=== PATIENT | male | born 1990 | race Caucasian/White ===

== ENCOUNTER 2019-07-07 22:16 | Inpatient (IN) | payer MEDICAID, OTHER ==
[~2019-07-07] VITALS: Ht 172.7 cm; Wt 81.7 kg
[2019-07-07] MEDS ORDERED: LURA20TA PO (22:59)
[2019-07-07 23:11] LABS: BASOPHILS % (AUTO) 0.3 % (0.0-2.0); EOSINOPHILS % (AUTO) 0.1 % (1.0-6.0); HEMATOCRIT 42.7 % (41-53); HEMOGLOBIN 14.2 g/dL (13.5-17.5); LYMPHOCYTES # (AUTO) 2.7 K/uL (1.0-4.8); LYMPHOCYTES % (AUTO) 15.6 % (22.0-44.0); MEAN CORPUSCULAR HEMOGLOBIN 29.5 pg (26.0-34.0); MEAN CORPUSCULAR HGB CONC 33.3 G/dL (31.0-37.0); MEAN CORPUSCULAR VOLUME 89 fL (80-100); MONOCYTES % (AUTO) 5.8 % (2.0-9.0); NEUTROPHILS # (AUTO) 13.6 K/uL (1.8-7.7); NEUTROPHILS % (AUTO) 78.2 % (40.0-70.0); PLATELET COUNT (AUTO) 296 K/uL (150-450); RED BLOOD CELL COUNT(AUTO) 4.82 MIL/uL (4.50-5.90); RED CELL DISTRIBUTION WIDTH 12.5 % (11.5-14.5)
[2019-07-07 23:19] LABS: ANION GAP 17 mmol/L (8-16); CALCIUM, TOTAL 9.8 mg/dL (8.8-10.5); CARBON DIOXIDE 22 mmol/L (22-29); CHLORIDE 98 mmol/L (98-107); CREATININE 1.06 mg/dL (0.60-1.30); GLOMERULAR FILTR. RATE CALC > 60 mL/min (>60); GLUCOSE,RANDOM 73 mg/dL (70-110); POTASSIUM 4.1 mmol/L (3.5-5.1); SODIUM SERUM 137 mmol/L (136-145); UREA NITROGEN, BLOOD 20 mg/dL (7-18)
[2019-07-07 23:36] LABS: ALANINE AMINOTRANSFERASE 57 U/L (12-78); ALBUMIN 4.6 g/dL (3.4-5.0); ALKALINE PHOSPHATASE 62 U/L (46-116); ASPARTATE AMINOTRANSFERASE 83 U/L (15-37); BILIRUBIN,TOTAL 1.6 mg/dL (0.1-1.0); TOTAL PROTEIN, SERUM 7.9 g/dL (6.4-8.2)
[2019-07-07] MEDS ORDERED: ZOLPIDEM TARTRATE 10 MG TABLET PO PRN (23:45)
[2019-07-08 07:27] LABS: CHOL/HDL RATIO 5.3 (4.2-7.3)
[2019-07-08 08:30] VITALS: BP 126/69
[2019-07-08] MEDS: LORazepam 2 MG TABLET PO PRN (11:09)
[2019-07-08] MEDS: HALOPERIDOL 5 MG TABLET PO PRN (11:09)
[2019-07-08] MEDS ORDERED: NICOTINE 14 MG/24 HOUR PATCH TD PRN ×2 (13:00)
[2019-07-08] MEDS ORDERED: CloNIDine HCL 0.1 MG TABLET PO PRN ×2 (13:00)
[2019-07-08] MEDS ORDERED: ACETAMINOPHEN 325 MG TABLET PO PRN ×2 (13:00)
[2019-07-08] MEDS ORDERED: LOPERAMIDE HCL 2 MG CAPSULE PO PRN ×2 (13:00)
[2019-07-08] MEDS ORDERED: DOCUSATE SODIUM 100 MG CAPSULE PO PRN ×2 (13:00)
[2019-07-08] MEDS ORDERED: MAGNESIUM HYDROXIDE SUSPENSION 30 ML UDCUP PO PRN ×2 (13:00)
[2019-07-08] MEDS ORDERED: IBUPROFEN 400 MG TABLET PO PRN ×2 (13:00)
[2019-07-08] MEDS ORDERED: GuaiFENesin/D-METHORPHAN [SUGAR-FREE] 200-20MG/10 ML SYRUP UDCUP PO PRN ×2 (13:00)
[2019-07-08] MEDS ORDERED: MAG HYDROX/AL HYDROX/SIMETH ES 30 ML SUSPENSION UDCUP PO PRN ×2 (13:00)
[2019-07-08] MEDS ORDERED: ALBUTEROL SULFATE HFA 90 MCG/PUFF 8 GM INHALER IH PRN ×2 (13:00)
[2019-07-08] MEDS ORDERED: PETROLATUM,WHITE 28 GM JELLY TP PRN ×2 (13:00)
[2019-07-08] MEDS ORDERED: ONDANSETRON HCL 4 MG TABLET PO PRN ×2 (13:00)
[2019-07-08] MEDS ORDERED: OLANZapine 10 MG TABLET PO SCH (17:00)
[2019-07-08] MEDS: OLANZapine 10 MG TABLET PO SCH (17:00)
[2019-07-08 19:25] VITALS: BP 119/75
[2019-07-09 08:42] VITALS: BP 108/58
[2019-07-09] MEDS: OLANZapine 10 MG TABLET PO SCH ×2 (10:23→17:06)
[2019-07-09] MEDS: LORazepam 2 MG TABLET PO PRN (10:23)
[2019-07-09] MEDS: HALOPERIDOL 5 MG TABLET PO PRN (10:23)
[2019-07-09 16:27] VITALS: BP 111/74
[2019-07-10] MEDS: OLANZapine 10 MG TABLET PO SCH ×2 (09:00→17:00)
[2019-07-10 12:13] VITALS: BP 120/63
[2019-07-10 16:24] VITALS: BP 109/50
[2019-07-11] MEDS: OLANZapine 10 MG TABLET PO SCH ×2 (08:56→16:41)
[2019-07-11] MEDS: BuPROPion HCL XL 150 MG ER TABLET PO SCH (08:56)
[2019-07-11 10:07] VITALS: BP 115/48
[2019-07-11 17:15] VITALS: BP 108/65
[2019-07-12 08:36] VITALS: BP 125/86
[2019-07-12] MEDS: BuPROPion HCL XL 150 MG ER TABLET PO SCH ×3 (08:50→10:03)
[2019-07-12] MEDS: OLANZapine 10 MG TABLET PO SCH ×3 (08:50→10:03)
[2019-07-12] MEDS ORDERED: OLAN10TA3 PO (08:59)
[2019-07-12] MEDS ORDERED: BUPR75 PO (08:59)
== END 2019-07-12 13:50 | disposition home or self-care (01) | DRG 885 ==
LOC: EMS 22:18 → 3EC 07-08 00:42
PROVIDERS: ADMIT Psychiatry & Neurology Psychiatry; ATTEND Psychiatry & Neurology Psychiatry
DX: F20.9 Schizophrenia, unspecified (principal); F15.20 Other stimulant dependence, uncomplicated; R45.851 Suicidal ideations; D72.829 Elevated white blood cell count, unspecified; E78.5 Hyperlipidemia, unspecified; F10.10 Alcohol abuse, uncomplicated; F17.210 Nicotine dependence, cigarettes, uncomplicated; F60.0 Paranoid personality disorder; R45.850 Homicidal ideations; Z59.0 Homelessness
CPT/HCPCS: G0480

== ENCOUNTER 2020-12-08 17:12 | Inpatient (IN) | payer MEDICAID, OTHER ==
[~2020-12-08] VITALS: Ht 175.3 cm; Wt 90.3 kg
[~2020-12-08 17:12] MED LIST: BUPR75 PO; OLAN10TA74 PO
[2020-12-08 17:48] LABS: EOSINOPHILS % (AUTO) 1.7 % (1.0-6.0); HEMATOCRIT 42.1 % (41-53); HEMOGLOBIN 14.6 g/dL (13.5-17.5); LYMPHOCYTES # (AUTO) 3.5 K/uL (1.0-4.8); LYMPHOCYTES % (AUTO) 37.9 % (22.0-44.0); MEAN CORPUSCULAR HEMOGLOBIN 31.8 pg (26.0-34.0); MEAN CORPUSCULAR HGB CONC 34.7 G/dL (31.0-37.0); MEAN CORPUSCULAR VOLUME 92 fL (80-100); MONOCYTES # (AUTO) 0.6 K/uL (0.1-1.0); MONOCYTES % (AUTO) 6.1 % (2.0-9.0); NEUTROPHILS # (AUTO) 4.9 K/uL (1.8-7.7); NEUTROPHILS % (AUTO) 53.3 % (40.0-70.0); PLATELET COUNT (AUTO) 331 K/uL (150-450); RED BLOOD CELL COUNT(AUTO) 4.59 MIL/uL (4.50-5.90); RED CELL DISTRIBUTION WIDTH 14.1 % (11.5-14.5)
[2020-12-08 18:02] LABS: COVID AG,FIA SOURCE NASOPHARYNGEAL
[2020-12-08 18:13] LABS: ANION GAP 8 mmol/L (8-16); CALCIUM, TOTAL 8.9 mg/dL (8.8-10.5); CARBON DIOXIDE 26 mmol/L (22-29); CHLORIDE 103 mmol/L (98-107); CREATININE 0.97 mg/dL (0.60-1.30); GLOMERULAR FILTR. RATE CALC > 60 mL/min (>60); GLUCOSE,RANDOM 116 mg/dL (70-110); SODIUM SERUM 137 mmol/L (136-145); UREA NITROGEN, BLOOD 20 mg/dL (7-18)
[2020-12-08 18:20] LABS: ALANINE AMINOTRANSFERASE 39 U/L (12-78); ALBUMIN 3.6 g/dL (3.4-5.0); ALKALINE PHOSPHATASE 63 U/L (46-116); BILIRUBIN,TOTAL 0.2 mg/dL (0.1-1.0)
[2020-12-08 19:23] LABS: ASPARTATE AMINOTRANSFERASE 20 U/L (15-37); TOTAL PROTEIN, SERUM 7.2 g/dL (6.4-8.2)
[2020-12-08] MEDS ORDERED: LORazepam 2 MG TABLET PO PRN (19:30)
[2020-12-08] MEDS ORDERED: HALOPERIDOL 5 MG TABLET PO PRN (19:30)
[2020-12-08 19:35] LABS: AMPHET/METH SCREEN,URINE NEGATIVE (NEGATIVE); BARBITURATE SCREEN, URINE NEGATIVE (NEGATIVE); BENZODIAZEPINES SCREEN,URINE NEGATIVE (NEGATIVE); CANNABINOID SCREEN,URINE NEGATIVE (NEGATIVE); COCAINE SCREEN,URINE NEGATIVE (NEGATIVE); METHADONE SCREEN, URINE NEGATIVE (NEGATIVE); OPIATE SCREEN,URINE NEGATIVE (NEGATIVE)
[2020-12-08 19:49] LABS: PHENCYCLIDINE SCREEN,URINE NEGATIVE (NEGATIVE)
[2020-12-09 02:15] VITALS: BP_SYST 141; BP_SYST 146; BP_DIAS 61
[2020-12-09] MEDS ORDERED: PNEUMOCOCCAL VACCINE POLYVALENT 0.5 ML VIAL [PPSV23] IM. ONE (05:30)
[2020-12-09] MEDS ORDERED: ACETAMINOPHEN 325 MG TABLET PO PRN (06:45)
[2020-12-09] MEDS ORDERED: PETROLATUM,WHITE 28 GM JELLY TP PRN (06:45)
[2020-12-09] MEDS ORDERED: LOPERAMIDE HCL 2 MG CAPSULE PO PRN (06:45)
[2020-12-09] MEDS ORDERED: BACITRACIN 28 GM OINTMENT TP PRN (06:45)
[2020-12-09] MEDS ORDERED: ONDANSETRON HCL 4 MG TABLET PO PRN (06:45)
[2020-12-09] MEDS ORDERED: BENZOCAINE/MENTHOL LOZENGE PO PRN (06:45)
[2020-12-09] MEDS ORDERED: MAG HYDROX/AL HYDROX/SIMETH ES 30 ML SUSPENSION UDCUP PO PRN (06:45)
[2020-12-09] MEDS ORDERED: CloNIDine HCL 0.1 MG TABLET PO PRN (06:45)
[2020-12-09] MEDS ORDERED: OMEPRAZOLE 20 MG CAPSULE PO PRN (06:45)
[2020-12-09] MEDS ORDERED: ALBUTEROL SULFATE HFA 90 MCG/PUFF 8 GM INHALER IH PRN (06:45)
[2020-12-09] MEDS ORDERED: IBUPROFEN 600 MG TABLET PO PRN (06:45)
[2020-12-09] MEDS ORDERED: MAGNESIUM HYDROXIDE SUSPENSION 30 ML UDCUP PO PRN (06:45)
[2020-12-09 12:33] LABS: CHOL/HDL RATIO 7.3 (4.2-7.3); CHOLESTEROL 240 mg/dL (131-200); HDL CHOLESTEROL 33 mg/dL (40-60); TRIGLYCERIDES 411 mg/dL (15-150)
[2020-12-09] MEDS: RisperiDONE 1 MG TABLET PO SCH (16:27)
[2020-12-09 17:40] VITALS: BP 149/84
[2020-12-09] MEDS: DOCUSATE SODIUM 100 MG CAPSULE PO PRN (17:41)
[2020-12-10] MEDS: RisperiDONE 1 MG TABLET PO SCH ×2 (08:07→17:40)
[2020-12-10 08:45] VITALS: BP 137/73
[2020-12-10 16:24] VITALS: BP 100/58
[2020-12-10] MEDS: ZOLPIDEM TARTRATE 10 MG TABLET PO PRN (21:45)
[2020-12-11 08:00] VITALS: BP 108/67
[2020-12-11] MEDS: RisperiDONE 1 MG TABLET PO SCH ×2 (10:11→16:41)
[2020-12-11] MEDS: DOCUSATE SODIUM 100 MG CAPSULE PO PRN (17:30)
[2020-12-11 18:03] VITALS: BP 116/68
[2020-12-11] MEDS: ZOLPIDEM TARTRATE 10 MG TABLET PO PRN (21:56)
[2020-12-12 08:00] VITALS: BP 114/65
[2020-12-12] MEDS: RisperiDONE 1 MG TABLET PO SCH ×2 (10:07→16:36)
[2020-12-12 16:41] VITALS: BP 119/64
[2020-12-12] MEDS: ZOLPIDEM TARTRATE 10 MG TABLET PO PRN (20:58)
[2020-12-13] MEDS: RisperiDONE 1 MG TABLET PO SCH ×2 (09:00→10:21)
[2020-12-13 09:33] VITALS: BP 114/74
[2020-12-13] MEDS ORDERED: RISP1TAB48 PO (10:08)
== END 2020-12-13 10:50 | disposition home or self-care (01) | DRG 750 ==
LOC: EMS 17:14 → 3EI 19:21
PROVIDERS: ADMIT Psychiatry & Neurology Psychiatry; ATTEND Psychiatry & Neurology Psychiatry
DX: F25.9 Schizoaffective disorder, unspecified (principal); R45.851 Suicidal ideations; E78.5 Hyperlipidemia, unspecified; F32.9 Major depressive disorder, single episode, unspecified; F41.9 Anxiety disorder, unspecified; G47.00 Insomnia, unspecified; I10 Essential (primary) hypertension; K59.00 Constipation, unspecified; F17.210 Nicotine dependence, cigarettes, uncomplicated; Z20.822 Contact with and (suspected) exposure to COVID-19; Z79.899 Other long term (current) drug therapy
CPT/HCPCS: 80053; 80061; 85025; 99285; G0480